=== PATIENT | female | born 1995 | race Caucasian/White ===

== ENCOUNTER 2016-05-30 17:59 | Emergency (ER) | payer BC ==
[2016-05-30 18:19] VITALS: BP 117/69
--- NOTE | 2016-05-30 20:45 | UC ---
Throat Pain/Nasal Romero HPI - HPI Summary HPI Summary: complaint of cough and nasal congestion thst started 4 days ago coughing spells someyimes cough is productive throat pain from coughing felt feverish and chills started today denies muscle aches, headaches, ear pain taking alkaseltzer cold and flu without relief - History of Current Complaint Chief Complaint: UCRespiratory Stated Complaint: COUGH/FEVER Time Seen by Provider: 05/30/16 20:39 Hx Obtained From: Patient Hx Last Menstrual Period: doesn't get because of control - Allergies/Home Medications Allergies/Adverse Reactions: Allergies Allergy/AdvReac Type Severity Reaction Status Date / Time No Known Allergies Allergy Verified 05/30/16 18:19 Home Medications: Home Medications Control 1 tab PO DAILY 05/30/16 [History Confirmed 05/30/16] PMH/Surg Hx/FS Hx/Imm Hx Previously Healthy: Yes - Surgical History Surgical History: Yes Surgery Procedure, Year, and Place: left eyelid procedure - Family History Known Family History: Negative: Cardiac Disease, Hypertension, Diabetes - Social History Occupation: Student Alcohol Use: None Substance Use Type: None Smoking Status (MU): Never Smoked Tobacco - Immunization History Most Recent Influenza Vaccination: 4680-1825 Review of Systems Constitutional: Chills Skin: Negative Eyes: Negative ENT: Nasal Discharge Respiratory: Cough Cardiovascular: Negative Gastrointestinal: Negative Genitourinary: Negative Motor: Negative Neurovascular: Negative Musculoskeletal: Negative Neurological: Negative Psychological: Negative All Other Systems Reviewed And Are Negative: Yes Physical Exam Triage Information Reviewed: Yes Appearance: No Pain Distress, Well-Nourished Vital Signs: Initial Vital Signs Temp 98.2 F 05/30/16 18:16 Pulse 113 05/30/16 18:16 Resp 16 05/30/16 18:16 BP 117/69 05/30/16 18:16 Pulse Ox 100 05/30/16 18:16 Vital Signs Reviewed: Yes Eyes: Positive: Conjunctiva Clear ENT: Positive: Pharyngeal erythema, Nasal congestion, TMs normal. Negative: Tonsillar swelling, Tonsillar exudate Neck: Positive: No Lymphadenopathy Respiratory: Positive: Lungs clear, Normal breath sounds, No respiratory distress Cardiovascular: Positive: RRR, No Murmur, Pulses Normal Abdomen Description: Positive: Nontender, Soft Bowel Sounds: Positive: Present Musculoskeletal Exam: Normal Neurological: Positive: Alert Psychological Exam: Normal Skin Exam: Normal Throat Pain/Nasal Course/Dx - Differential Dx/Diagnosis Differential Diagnosis/HQI/PQRI: Influenza, Pharyngitis, URI Provider Diagnoses: URI Discharge - Discharge Plan Condition: Stable Disposition: HOME Prescriptions: Benzonatate CAP* [Tessalon CAP*] 100 mg PO TID PRN #30 cap PRN Reason: Cough Patient Education Materials: Upper Respiratory Infection (ED) Forms: *Work Release Referrals: Non Staff,Doctor [Primary Care Provider] - [facility] [Outside] Additional Instructions: Increase fluids and rest Take acetaminophen or ibuprofen for fever or pain Please review your discharge instructions. If your symptoms do not improve please call your primary care provider or return to urgent care
== END 2016-05-30 20:55 | disposition home or self-care (01) ==
LOC: UCCORT 17:59
DX: J06.9 Acute upper respiratory infection, unspecified (principal); R09.81 Nasal congestion
CPT/HCPCS: 99202; G0463